=== PATIENT | male | born 1990 | race Caucasian/White ===

== ENCOUNTER 2020-10-12 09:32 | Emergency (ER) | payer SELFPAY ==
--- NOTE | 2020-10-12 09:38 | ED.ALLEREA ---
HPI - Allergic Reaction General Chief complaint: Allergic Reaction Stated complaint: Stung by Wasp on right Ear, Dizziness, nausea Time Seen by Provider: 10/12/20 09:38 Source: patient and RN notes reviewed History of Present Illness HPI narrative: Patient is a 30-year-old male who presents the urgent care with complaints of a wasp sting to the right ear. Patient states he woke up this morning was a little bit of dizziness that caused nausea. Patient states he is not dizzy or nauseous at this time. Denies of any use of [id number] medication for the lasting. Denies of any fevers. No other acute complaints. No acute distress noted. Patient aware of the plan of care. Some parts of this dictation were generated by voice recognition software and may contain typographical and/or grammatical inaccuracies. Related Data Allergies Allergy/AdvReac Type Severity Reaction Status Date / Time No Known Allergies Allergy Verified 10/12/20 09:47 Review of Systems Review of Systems: CONSTITUTIONAL: Denies fever, chills, or sweats. EYES: Denies visual changes, redness, or discharge. ENT: Denies rhinorrhea, congestion, sore throat, or otalgia. CARDIOVASCULAR: Denies chest pain, palpitations, or edema. RESPIRATORY: Denies cough or dyspnea. GASTROINTESTINAL: Denies abdominal pain, nausea, vomiting, or diarrhea. GENITOURINARY: Denies dysuria or hematuria. SKIN: Reports of swelling and redness to the right ear due to wasp sting MUSCULOSKELETAL: Denies back pain, joint pain, or myalgia. NEUROLOGIC: Denies headache, numbness, or weakness. All other systems reviewed are negative, except as documented in HPI. PMFSH Comments At the time of my signature, I reviewed and agree with the nursing past medical, surgical, social, and family history. There is no relevant family history pertinent to the patient complaint. Exam Narrative: GENERAL: This is a well-nourished, well-developed patient, in no apparent distress. HEAD: normocephalic, atraumatic. EYES: PERRL. Sclera clear/white. Vision is grossly intact. EARS: Right external ear with mild edema and moderate erythema with mild tenderness. Left external ear normal, auditory canals clear and without drainage, mild fluid noted behind bilateral TMs without otitis, TMs normal without perforation. Hearing grossly intact. NOSE: External nose normal with no obvious nasal discharge, nares without redness, no rhinorrhea. THROAT: Mucous membranes moist, posterior pharynx clear. NECK: Neck supple CARDIOVASCULAR: Regular rate and rhythm without murmurs, gallops, or rubs. RESPIRATORY: Clear to auscultation. Breath sounds equal bilaterally. No wheezes, rales, or rhonchi. SKIN: See ears. Warm, intact with no suspicious lesions or rash, good texture and turgor. NEURO: awake, alert, and oriented to person, place and time. There were no obvious focal neurologic abnormalities. EXTREMITIES: No clubbing, cyanosis, or edema. Course Vital Signs Vital signs: Vital Signs Temperature 98.3 F 10/12/20 09:40 Pulse Rate 80 10/12/20 09:40 Respiratory Rate 20 10/12/20 09:40 Blood Pressure 133/76 10/12/20 09:40 Pulse Oximetry 100 10/12/20 09:40 Temperature 98.3 F 10/12/20 09:40 Pulse Rate 80 10/12/20 09:40 Respiratory Rate 20 10/12/20 09:40 Blood Pressure 133/76 10/12/20 09:40 Pulse Oximetry 100 10/12/20 09:40 Reviewed MDM - Allergic Reaction MDM Narrative Medical decision making narrative: Advised the patient to complete steroid regimen as prescribed. Be sure to eat and drink with the medication. Use an cecc-dro-ypiavci daily antihistamine such as Claritin/Zyrtec/Benadryl. Use the meclizine as needed for dizziness. If you develop any increase in dizziness associated with swelling of the ear or fever, nausea, vomiting?go to the emergency room. Follow-up with your PCP within 2 to 5 days or for worsening symptoms or failure to improve. Differential Diagnosis Differential diagnosis: Likel
[2020-10-12 09:40] VITALS: BP 133/76; PULSE 80; RESP 20; TEMP 36.8; O2SAT 100
== END 2020-10-12 09:57 | disposition home or self-care (01) ==
PROVIDERS: Emergency Provider Nurse Practitioner Family
DX: T63.461A Toxic effect of venom of wasps, accidental (unintentional), initial encounter (principal)
CPT/HCPCS: 99213; G0463